=== PATIENT | female | born 1995 | race Caucasian/White ===

== ENCOUNTER 2018-09-19 23:17 | Emergency (ER) | payer MEDICAID ==
[2018-09-19 23:37] VITALS: BP 150/96
--- NOTE | 2018-09-19 23:56 | EDM.PDOC ---
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 She could not feel the iud string tonight and she was concerned because of such recent placement. Onset: Today Duration: Hour(s): Associated Symptoms: Reports: No Other Symptoms, Other (pt has been slightly tender in the lower pelvic area. She is due to have her period in the next 2-3 days,.) pelvic Pain Score (Numeric/FACES): 4 - Related Data Allergies Allergy/AdvReac Type Severity Reaction Status Date / Time Penicillins Allergy Rash Verified 09/19/18 23:28 Home Meds: Home Meds Sertraline [Zoloft] 50 mg PO BEDTIME 05/12/14 [History] Mirena 1 applic VAG Q60M 09/19/18 [History] Past Medical History - Past Health History Medical/Surgical History: Denies Medical/Surgical History Psychiatric History: Reports: Anxiety, Depression - Past Surgical History Musculoskeletal Surgical History: Reports: Other (See Below) Other Musculoskeletal Surgeries/Procedures:: right ankle surgery- 19 years old Social & Family History - Tobacco Use Smoking Status *Q: Never Smoker - Caffeine Use Caffeine Use: Reports: Coffee, Soda - Recreational Drug Use Recreational Drug Use: No ED ROS GENERAL - Review of Systems Review Of Systems: See Below Constitutional: Reports: No Symptoms HEENT: Reports: No Symptoms Respiratory: Reports: No Symptoms Cardiovascular: Reports: No Symptoms Endocrine: Reports: No Symptoms GI/Abdominal: Reports: No Symptoms : Reports: Other (pt was not able to feel the IUD string and was wondering if placement was lost. ) Musculoskeletal: Reports: No Symptoms Skin: Reports: No Symptoms Neurological: Reports: No Symptoms ED EXAM, GI/ABD - Physical Exam Exam: See Below Text/Narrative:: pt arrived with a concern that her IUD lost placement. She was not able to find the string. Exam Limited By: No Limitations General Appearance: Alert, Mild Distress (Female) Exam: Other (exam with a speculum at first did not reveal the string. Josh exam found it behind the cervix and then it could be visualized. ) Rectal (Female) Exam: Deferred Back Exam: Normal Inspection Extremities: Normal Inspection Neurological: Alert, Oriented, Normal Cognition Course - Vital Signs Last Recorded V/S: Last Vital Signs Temp 36.4 C 09/19/18 23:34 Pulse 83 09/19/18 23:34 Resp 15 09/19/18 23:34 BP 150/96 H 09/19/18 23:34 Pulse Ox 99 09/19/18 23:34 Departure - Departure Time of Disposition: 23:54 Disposition: Home, Self-Care 01 Condition: Fair Clinical Impression: IUD check up, Premenstrual symptom - Discharge Information Referrals: PCP,None [Primary Care Provider] - Forms: ED Department Discharge Care Plan Goals: rtc if increased pain. continue to check for iud string.
== END 2018-09-20 00:05 | disposition home or self-care (01) ==
LOC: JP.ED 23:17
DX: Z30.431 Encounter for routine checking of intrauterine contraceptive device (principal); N94.89 Other specified conditions associated with female genital organs and menstrual cycle; F41.9 Anxiety disorder, unspecified; F32.9 Major depressive disorder, single episode, unspecified; Z79.899 Other long term (current) drug therapy
CPT/HCPCS: 99283

== ENCOUNTER 2018-10-16 22:14 | Emergency (ER) | payer MEDICAID ==
[2018-10-16 23:06] VITALS: BP 137/92
--- NOTE | 2018-10-17 00:49 | EDM.PDOC ---
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 She has been bleeding alomost continuously since that time. She has had very sharp pain . Onset: Gradual Duration: Day(s): Location: Reports: Abdomen Associated Symptoms: Reports: No Other Symptoms Uterine Pain Score (Numeric/FACES): 2 - Related Data Allergies Allergy/AdvReac Type Severity Reaction Status Date / Time Penicillins Allergy Rash Verified 10/16/18 23:07 Home Meds: Home Meds Sertraline [Zoloft] 50 mg PO BEDTIME 05/12/14 [History] Mirena 1 applic VAG Q60M 09/19/18 [History] Past Medical History - Past Health History Medical/Surgical History: Denies Medical/Surgical History HEENT History: Reports: Impaired Vision Musculoskeletal History: Reports: None Psychiatric History: Reports: Anxiety, Depression Endocrine/Metabolic History: Reports: Obesity/BMI 30+ - Past Surgical History Head Surgeries/Procedures: Reports: None HEENT Surgical History: Reports: None Endocrine Surgical History: Reports: None Musculoskeletal Surgical History: Reports: Other (See Below) Other Musculoskeletal Surgeries/Procedures:: right ankle surgery- 19 years old Dermatological Surgical History: Reports: None Social & Family History - Tobacco Use Smoking Status *Q: Never Smoker Second Hand Smoke Exposure: No - Caffeine Use Caffeine Use: Reports: Coffee, Soda - Recreational Drug Use Recreational Drug Use: No ED ROS GENERAL - Review of Systems Review Of Systems: See Below Constitutional: Reports: No Symptoms HEENT: Reports: No Symptoms Respiratory: Reports: No Symptoms Cardiovascular: Reports: No Symptoms Endocrine: Reports: No Symptoms GI/Abdominal: Reports: No Symptoms, Other (pt is having continuous spotting and pain since the IUD was inserted. ) : Reports: No Symptoms Musculoskeletal: Reports: No Symptoms ED EXAM, RENAL/ - Physical Exam Exam: See Below Text/Narrative:: pt arrived with pain since she had the IUD inserted. Exam Limited By: No Limitations General Appearance: Alert, Mild Distress Ears: Normal TMs Nose: Normal Inspection Throat/Mouth: Normal Inspection Head: Atraumatic Neck: Normal Inspection Respiratory/Chest: No Respiratory Distress Cardiovascular: Regular Rate, Rhythm (Female) Exam: Other ( pelvic exam revealed the Iud may be setting lower than it should be. Pt wanted the IUD without question. The white portion of the IUD could be visyualized in the cervical os. When quetioned again she defintely wanted the IUD out. ) Rectal (Female) Exam: Deferred Back Exam: Normal Inspection Extremities: Normal Inspection Neurological: Alert, Oriented, Normal Cognition Course - Vital Signs Last Recorded V/S: Last Vital Signs Temp 35.7 C 10/16/18 23:08 Pulse 74 10/16/18 23:08 Resp 16 10/16/18 23:08 BP 137/92 H 10/16/18 23:08 Pulse Ox 98 10/16/18 23:08 - Re-Assessments/Exams Free Text/Narrative Re-Assessment/Exam: 10/17/18 00:56 The Iud appeared to low and the pt whidhed to have it removed. The string was grasped by the ring nose and it was removed without difficulty. Pt did not have sig bleeding. Departure - Departure Time of Disposition: 00:49 Disposition: Home, Self-Care 01 Condition: Fair Clinical Impression: IUD complication - Discharge Information Instructions: Intrauterine Device Information Referrals: PCP,None [Primary Care Provider] - Forms: ED Department Discharge Care Plan Goals: expect persist spotting for the next 10 days. If ongoing pain please follow up with provider.
== END 2018-10-17 00:58 | disposition home or self-care (01) ==
LOC: JP.ED 22:14
DX: T83.89XA Other specified complication of genitourinary prosthetic devices, implants and grafts, initial encounter (principal); Z30.432 Encounter for removal of intrauterine contraceptive device; Z88.0 Allergy status to penicillin
CPT/HCPCS: 99283

== ENCOUNTER 2021-02-12 11:00 | Emergency (ER) | payer MEDICAID ==
[2021-02-12 11:31] VITALS: BP 154/94; PULSE 91
--- NOTE | 2021-02-12 11:57 | EDM.PDOC ---
ED HPI GENERAL MEDICAL PROBLEM - General Chief Complaint: Respiratory Problem Stated Complaint: SHARP PAIN/RT SIDE Time Seen by Provider: 02/12/21 11:57 Source of Information: Reports: Patient, RN Notes Reviewed History Limitations: Reports: No Limitations - History of Present Illness INITIAL COMMENTS - FREE TEXT/NARRATIVE: Delfina presents today for complaint of right lateral chest/rib pain for the past 24 hours that is sharp and burning. She denies any recent injury, trauma, fever, chills, nausea, vomiting, cough or other concerns. - Related Data Allergies Allergy/AdvReac Type Severity Reaction Status Date / Time Penicillins Allergy Rash Verified 02/12/21 11:32 Home Meds: Home Meds Sertraline [Zoloft] 100 mg PO BEDTIME 05/12/14 [History] Past Medical History - Past Health History Medical/Surgical History: Denies Medical/Surgical History HEENT History: Reports: Impaired Vision Musculoskeletal History: Reports: None Psychiatric History: Reports: Anxiety, Depression Endocrine/Metabolic History: Reports: Obesity/BMI 30+ - Past Surgical History Head Surgeries/Procedures: Reports: None HEENT Surgical History: Reports: None Endocrine Surgical History: Reports: None Musculoskeletal Surgical History: Reports: Other (See Below) Other Musculoskeletal Surgeries/Procedures:: right ankle surgery- 19 years old Dermatological Surgical History: Reports: None Social & Family History - Tobacco Use Tobacco Use Status *Q: Never Tobacco User - Caffeine Use Caffeine Use: Reports: Coffee, Soda - Recreational Drug Use Recreational Drug Use: No ED ROS GENERAL - Review of Systems Review Of Systems: See Below Constitutional: Reports: No Symptoms HEENT: Reports: No Symptoms Respiratory: Reports: Other (pain to right lateral chest off and on. ). Denies: Shortness of Breath, Wheezing, Cough, Sputum, Hemoptysis Cardiovascular: Reports: Chest Pain (pain to right lateral chest ). Denies: Blood Pressure Problem, Claudication, Dyspnea on Exertion, Edema, Lightheadedness, Orthopnea, Palpitations, PND, Syncope Endocrine: Reports: No Symptoms GI/Abdominal: Reports: No Symptoms : Reports: No Symptoms Musculoskeletal: Reports: No Symptoms Skin: Reports: No Symptoms Neurological: Reports: No Symptoms Psychiatric: Reports: No Symptoms Hematologic/Lymphatic: Reports: No Symptoms Immunologic: Reports: No Symptoms ED EXAM, GENERAL - Physical Exam Exam: See Below Exam Limited By: No Limitations General Appearance: Alert, WD/WN, No Apparent Distress Eye Exam: Bilateral Eye: Normal Inspection, PERRL Ears: Normal External Exam, Normal Canal, Hearing Grossly Normal, Normal TMs Nose: Normal Inspection, Normal Mucosa, No Blood Throat/Mouth: Normal Inspection, Normal Lips, Normal Teeth, Normal Gums, Normal Oropharynx, Normal Voice, No Airway Compromise Head: Atraumatic, Normocephalic Neck: Normal Inspection, Supple, Non-Tender, Full Range of Motion. No: Lymphadenopathy (R), Lymphadenopathy (L) Respiratory/Chest: No Respiratory Distress, Lungs Clear, Normal Breath Sounds, No Accessory Muscle Use, Chest Non-Tender, Other (tenderness with palpation and percussio to left lateral chest). No: Decreased Breath Sounds, Crackles, Rales, Rhonchi, Wheezing, Stridor Cardiovascular: Normal Peripheral Pulses, Regular Rate, Rhythm, No Edema, No Gallop, No Murmur, No Rub Peripheral Pulses: 4+: Radial (L), Radial (R) GI/Abdominal: Normal Bowel Sounds, Soft, Non-Tender, No Organomegaly, No Distention, No Abnormal Bruit, No Mass. No: Guarding, Rigid, Rebound, Tender Back Exam: Normal Inspection, Full Range of Motion. No: CVA Tenderness (R), CVA Tenderness (L) Extremities: Normal Inspection, Normal Range of Motion, Non-Tender, No Pedal Edema, Normal Capillary Refill Neurological: Alert, Oriented, CN II-XII Intact, Normal Cognition, Normal Gait, Normal Reflexes, No Motor/Sensory Deficits Psychiatric: Normal Affect, Normal Mood Skin Exam: Warm, Dry, Intact, Normal Color, No Rash, Other (she did receive chicken pox vaccination as a child. ). No: Wound/Incision, Zoster-Like Rash Lymphatic: No Adenopathy Course - Vital Signs Last Recorded V/S: Last Vital Signs Temp 36.1 C 02/12/21 11:38 Pulse 91 02/12/21 11:38 Resp 18 02/12/21 11:38 BP 154/94 H 02/12/21 11:38 Pulse Ox 97 02/12/21 11:38 - Orders/Labs/Meds Labs: Laboratory Tests 02/12/21 02/12/21 Range/Units 11:16 12:19 WBC 8.0 (4.5-11.0) K/uL RBC 4.75 (3.30-5.50) M/uL Hgb 14.2 (12.0-15.0) g/dL Hct 42.5 (36.0-48.0) % MCV 90 (80-98) fL MCH 30 (27-31) pg MCHC 33 (32-36) % Plt Count 347 (150-400) K/uL Neut % (Auto) 71.3 H (36-66) % Lymph % (Auto) 17.8 L (24-44) % [place] % (Auto) 7.4 H (2-6) % Eos % (Auto) 2.6 (2-4) % Baso % (Auto) 0.9 (0-1) % Urine Color Yellow (YELLOW) Urine Appearance Slightly cloudy A (CLEAR) Urine pH 6.5 (5.0-8.0) Ur Specific [place] 1.025 (1.008-1.030) Urine Protein Negative (NEGATIVE) mg/dL Urine Glucose (UA) Negative (NEGATIVE) mg/dL Urine Ketones Negative (NEGATIVE) mg/dL Urine Occult Blood Large H (NEGATIVE) Urine Nitrite Negative (NEGATIVE) Urine Bilirubin Negative (NEGATIVE) Urine Urobilinogen 0.2 (0.2-1.0) EU/dL Ur Leukocyte Esterase Negative (NEGATIVE) Urine RBC 50-75 H (0-5) Urine WBC 0-5 (0-5) Ur Epithelial Cells Few Amorphous Sediment Not seen Urine Bacteria Few Urine Mucus Many No acute findings noted. Menstrual cycle present. - Radiology Interpretation Free Text/Narrative:: Chest x-ray shows no acute findings. x-ray and lab work discussed with patient, no acute findings noted. She is most likely suffering from costochondritis. She can take ibuprofen as directed. Follow up with primary for recheck and as needed. She is in agreement with plan. Departure - Departure Time of Disposition: 13:22 Disposition: Home, Self-Care 01 Condition: Good Clinical Impression: Costochondritis - Discharge Information *PRESCRIPTION DRUG MONITORING PROGRAM REVIEWED*: Not Applicable *COPY OF PRESCRIPTION DRUG MONITORING REPORT IN PATIENT EVAN: Not Applicable Instructions: Costochondritis, [id number] Referrals: PCP,None [Primary Care Provider] - Forms: ED Department Discharge Additional Instructions: You have been evaluated and treated for right lateral chest/rib pain. Chest x-ray shows no acute findings. Lab work shows no sign of bacterial infection at this time. You are most likely suffering from chostochondritis. Take ibuprofen 800mg by mouth three times a day for pain with food. Sepsis Event Note (ED) - Evaluation Sepsis Screening Result: No Definite Risk - Focused Exam Vital Signs: Vital Signs Temp Pulse Resp BP Pulse Ox 02/12/21 11:38 36.1 C 91 18 154/94 H 97 02/12/21 11:30 36.1 C 91 18 154/94 H 97 - Assessment/Plan Assessment:: Costochondritis Plan: Patient evaluated and treated for right lateral chest/rib pain. Chest x-ray shows no acute findings. Lab work shows no sign of bacterial infection at this time. She is most likely suffering from chostochondritis. Take ibuprofen 800mg by mouth three times a day for pain with food.
--- NOTE | 2021-02-12 12:58 | CRLCR ---
For Patients: As a result of the Cures Act, medical imaging exams and procedure reports are released immediately into your electronic medical record. You may view this report before your referring provider. If you have questions, please contact your health care provider. INDICATION: Chest pain. COMPARISON: None. TECHNIQUE: PA and lateral views of the chest. FINDINGS: The lungs are hypoinflated. No focal consolidation, pneumothorax or effusion. Cardiomediastinal silhouette is within normal limits. There are no acute osseous findings. IMPRESSION: Hypoventilatory changes. No acute airspace disease. Dictated by Mark Galicia MD @ 02/12/2021 12:57:46 PM Dictated by: Mark Galicia MD @ 02/12/2021 12:57:53 (Electronically Signed)
== END 2021-02-12 13:38 | disposition home or self-care (01) ==
LOC: JP.ED 11:00
DX: M94.0 Chondrocostal junction syndrome [Tietze] (principal); E66.9 Obesity, unspecified; Z68.41 Body mass index [BMI] 40.0-44.9, adult; Z88.0 Allergy status to penicillin
CPT/HCPCS: 36415; 71046; 81001; 85025; 99283-25

== ENCOUNTER 2021-03-11 09:29 | Emergency (ER) | payer MEDICAID ==
[2021-03-11] MEDS ORDERED: Ondansetron 4 MG Tab.DIS PO ONE (09:31)
[2021-03-11 10:41] VITALS: BP 165/109; PULSE 84
--- NOTE | 2021-03-11 10:55 | EDM.PDOC ---
ED HPI GENERAL MEDICAL PROBLEM - General Chief Complaint: Gastrointestinal Problem Stated Complaint: VOMITING FOR PAST 12 HOURS Time Seen by Provider: 03/11/21 10:45 Source of Information: Reports: Patient, Old Records, RN History Limitations: Reports: No Limitations - History of Present Illness INITIAL COMMENTS - FREE TEXT/NARRATIVE: 26 yo female presents with nausea and vomiting and a little diarrhea tkat began about 8 pm last night. No blood in her emesis, abdominal pain, or fever. Was seen in the clinic yesterday for cold sx's and had a negative Covid test. Onset: Gradual Onset Date: 03/10/21 Duration: Hour(s): (12+), Constant Location: Reports: Abdomen Quality: Reports: Other (no pain) Severity: Moderate Improves with: Reports: None Worsens with: Reports: None Context: Reports: Other (See HPI) Associated Symptoms: Reports: Nausea/Vomiting. 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) - Related Data Allergies Allergy/AdvReac Type Severity Reaction Status Date / Time Penicillins Allergy Rash Verified 03/11/21 10:38 Home Meds: Home Meds Sertraline [Zoloft] 100 mg PO BEDTIME 05/12/14 [History] Azithromycin 250 mg PO DAILY 03/11/21 [History] Past Medical History - Past Health History Medical/Surgical History: Denies Medical/Surgical History HEENT History: Reports: Impaired Vision Musculoskeletal History: Reports: None Psychiatric History: Reports: Anxiety, Depression Endocrine/Metabolic History: Reports: Obesity/BMI 30+ - Past Surgical History Head Surgeries/Procedures: Reports: None HEENT Surgical History: Reports: None Endocrine Surgical History: Reports: None Musculoskeletal Surgical History: Reports: Other (See Below) Other Musculoskeletal Surgeries/Procedures:: right ankle surgery- 19 years old Dermatological Surgical History: Reports: None Social & Family History - Tobacco Use Tobacco Use Status *Q: Never Tobacco User Second Hand Smoke Exposure: No - Caffeine Use Caffeine Use: Reports: Coffee, Soda - Recreational Drug Use Recreational Drug Use: No ED ROS GENERAL - Review of Systems Review Of Systems: See Below Constitutional: Reports: No Symptoms HEENT: Reports: No Symptoms Respiratory: Reports: No Symptoms Cardiovascular: Reports: No Symptoms GI/Abdominal: Reports: Bloody Stool, Diarrhea (mild), Nausea, Vomiting. Denies: Abdominal Pain, Constipation, Hematemesis, Hematochezia, Melena : Reports: No Symptoms Musculoskeletal: Reports: No Symptoms Skin: Reports: No Symptoms Neurological: Reports: No Symptoms ED EXAM, GI/ABD - Physical Exam Exam: See Below Exam Limited By: No Limitations General Appearance: Alert, WD/WN, No Apparent Distress, Obese Eyes: Bilateral: Normal Appearance Ears: Normal External Exam, Normal Canal, Hearing Grossly Normal Nose: Normal Inspection, No Blood Throat/Mouth: Normal Inspection, Normal Lips, Normal Oropharynx, Normal Voice, No Airway Compromise Head: Atraumatic, Normocephalic Neck: Normal Inspection Respiratory/Chest: No Respiratory Distress, Lungs Clear, Normal Breath Sounds, No Accessory Muscle Use Cardiovascular: Regular Rate, Rhythm, No Edema GI/Abdominal Exam: Soft, Non-Tender Extremities: Normal Inspection Neurological: Alert, Oriented, CN II-XII Intact, Normal Cognition, No Motor/Sensory Deficits Psychiatric: Normal Affect, Normal Mood Skin Exam: Warm, Dry, Intact, Normal Color, No Rash Course - Vital Signs Last Recorded V/S: Last Vital Signs Temp 36.6 C 03/11/21 10:44 Pulse 84 03/11/21 10:44 Resp 16 03/11/21 10:44 BP 165/109 H 03/11/21 10:44 Pulse Ox 95 03/11/21 10:44 - Orders/Labs/Meds Meds: Medications Discontinued Medications Generic Name Dose Route Start Last Admin Trade Name Ayaz PRN Reason Stop Dose Admin Ondansetron HCl 4 mg 03/11/21 09:31 03/11/21 10:48 Ondansetron 4 Mg Tab.Dis PO 03/11/21 09:32 4 mg ONETIME ONE Administration - Re-Assessments/Exams Free Text/Narrative Re-Assessment/Exam: 03/11/21 12:07 Went to check on patient and she had left. I called and left a voice message for her regarding calling in an Rx for Zofran for her. Departure - Departure Time of Disposition: 12:08 Disposition: Eloped 07 Condition: Fair Clinical Impression: Nausea and vomiting Qualifiers: Vomiting type: unspecified Vomiting Intractability: non-intractable Qualified Code(s): R11.2 - Nausea with vomiting, unspecified - Discharge Information *PRESCRIPTION DRUG MONITORING PROGRAM REVIEWED*: Not Applicable *COPY OF PRESCRIPTION DRUG MONITORING REPORT IN PATIENT EVAN: Not Applicable Referrals: PCP,None [Primary Care Provider] - Forms: ED Department Discharge Sepsis Event Note (ED) - Focused Exam Vital Signs: Vital Signs Temp Pulse Resp BP Pulse Ox 03/11/21 10:44 36.6 C 84 16 165/109 H 95 03/11/21 10:40 36.6 C 84 16 165/109 H 95
== END 2021-03-11 12:21 | disposition left against medical advice (07) ==
LOC: JP.ED 09:29
DX: R11.2 Nausea with vomiting, unspecified (principal); E66.9 Obesity, unspecified; Z68.41 Body mass index [BMI] 40.0-44.9, adult; Z88.0 Allergy status to penicillin
CPT/HCPCS: 99283; A9270

== ENCOUNTER 2021-06-04 14:07 | Emergency (ER) | payer MEDICAID ==
[2021-06-04 14:28] VITALS: BP 143/85; PULSE 84
== END 2021-06-04 16:00 | disposition home or self-care (01) ==
LOC: JP.ED 14:07
DX: R10.2 Pelvic and perineal pain (principal); E66.9 Obesity, unspecified; Z68.41 Body mass index [BMI] 40.0-44.9, adult; Z88.0 Allergy status to penicillin
CPT/HCPCS: 76857; 76857-26; 99284-25

== ENCOUNTER 2022-03-23 02:01 | Emergency (ER) | payer MEDICAID ==
[2022-03-23 02:30] VITALS: BP 142/103; PULSE 89
== END 2022-03-23 02:50 | disposition home or self-care (01) ==
LOC: JP.ED 02:01
DX: J06.9 Acute upper respiratory infection, unspecified (principal); H66.93 Otitis media, unspecified, bilateral; H69.83 Other specified disorders of Eustachian tube, bilateral; Z88.0 Allergy status to penicillin; Z79.899 Other long term (current) drug therapy
CPT/HCPCS: 99282

== ENCOUNTER 2024-01-15 15:30 | Emergency (ER) | payer MEDICAID ==
[2024-01-15 15:52] VITALS: BP 146/92; PULSE 102
[2024-01-15 16:24] LABS: APPEARANCE,URINE SLIGHTLY CLOUDY (CLEAR); BILIRUBIN,URINE NEGATIVE (NEGATIVE); COLOR,URINE YELLOW (YELLOW); GLUCOSE,URINE NEGATIVE (NEGATIVE); KETONES,URINE NEGATIVE (NEGATIVE); LEUKOCYTE ESTERASE,URINE NEGATIVE (NEGATIVE); NITRITE,URINE NEGATIVE (NEGATIVE); OCCULT BLOOD,URINE NEGATIVE (NEGATIVE); PROTEIN,URINE NEGATIVE (NEGATIVE); UROBILINOGEN,URINE 0.2 EU/dL (0.2-1.0)
[2024-01-15 16:27] LABS: CREATININE,URINE RAND 192.2 mg/dL (20.0-370.0); PROTEIN,URINE RANDOM 13.9 mg/dL (6.0-11.9)
[2024-01-15 16:29] LABS: BASOPHILS ABSOLUTE AUTO 0.03 K/uL (0.00-0.10); BASOPHILS PERCENT AUTO 0.2 % (0.1-1.3); EOSINOPHILS ABSOLUTE AUTO 0.11 K/uL (0.00-0.40); EOSINOPHILS PERCENT AUTO 0.8 % (0.0-5.4); HEMATOCRIT 33.3 % (34.3-46.0); HEMOGLOBIN 11.6 g/dL (11.2-15.5); IMMATURE GRAN ABSOLUTE AUTO 0.08 K/uL (0.00-0.23); IMMATURE GRAN PERCENT AUTO 0.6 % (0.0-0.7); LYMPHOCYTES ABSOLUTE AUTO 2.33 K/uL (0.8-3.3); LYMPHOCYTES PERCENT AUTO 17.9 % (11.4-47.7); MEAN CORPUSCULAR HEMOGLOBIN 30.1 pg (31.6-35.5); MEAN CORPUSCULAR HGB CONC 34.8 g/dL (31.6-35.5); MEAN CORPUSCULAR VOLUME 86.3 fL (81.4-99.0); MONOCYTES ABSOLUTE AUTO 0.84 K/uL (0.20-0.90); MONOCYTES PERCENT AUTO 6.5 % (3.3-12.6); NEUTROPHILS ABSOLUTE AUTO 9.63 K/uL (1.0-7.6); PLATELET COUNT,PLT 263 K/uL (130-375); RED BLOOD CELL COUNT 3.86 M/uL (3.77-5.24)
[2024-01-15 16:31] LABS: PROTEIN CREATININE RATIO,URINE 72.3 mg/g (21.0-161.0)
[2024-01-15 16:34] LABS: AMORPHOUS SEDIMENT,URINE FEW; BACTERIA,URINE MODERATE; EPITHELIAL CELLS,URINE MODERATE; MUCUS,URINE FEW; RBC,URINE 0-5 (0-5); WBC,URINE 0-5 (0-5)
[2024-01-15 16:55] LABS: A/G RATIO 0.7 (1.2-2.2); ALANINE AMINOTRANSFERASE,ALT 23 U/L (12-78); ALBUMIN 2.8 g/dL (3.4-5.0); ALKALINE PHOSPHATASE 106 U/L (46-116); ANION GAP 13.7 mmol/L (5.0-14.0); ASPARTATE AMNIOTRANSFERASE,AST 18 U/L (15-37); BILIRUBIN TOTAL 0.3 mg/dL (0.2-1.0); BLOOD UREA NITROGEN,BUN 8 mg/dL (7-18); CALCIUM 9.3 mg/dL (8.5-10.1); CARBON DIOXIDE,CO2 23 mmol/L (21-32); CHLORIDE,CL 101 mmol/L (100-108); CREATININE 0.8 mg/dL (0.6-1.0); ESTIMATED GFR 102 mL/min (>60); GLUCOSE RANDOM 91 mg/dL (74-106); POTASSIUM,K 3.7 mmol/L (3.6-5.2); PROTEIN TOTAL,TP 7.1 g/dL (6.4-8.2); SODIUM,NA 134 mmol/L (140-148)
== END 2024-01-15 17:25 | disposition home or self-care (01) ==
LOC: JP.ED 15:30
DX: O99.513 Diseases of the respiratory system complicating pregnancy, third trimester (principal); R06.02 Shortness of breath; O13.9 Gestational [pregnancy-induced] hypertension without significant proteinuria, unspecified trimester; Z88.0 Allergy status to penicillin; Z3A.29 29 weeks gestation of pregnancy; Z79.899 Other long term (current) drug therapy
CPT/HCPCS: 36415; 80053; 81001; 82570; 84156; 84484; 85025; 93005; 93010; 99284; 99285

== ENCOUNTER 2024-03-12 20:33 | Emergency (ER) | payer MEDICAID ==
[2024-03-12 21:10] VITALS: BP 152/84; PULSE 101
== END 2024-03-12 21:15 | disposition home or self-care (01) ==
LOC: JP.ED 20:33
DX: Z48.815 Encounter for surgical aftercare following surgery on the digestive system (principal); I10 Essential (primary) hypertension; E66.9 Obesity, unspecified; Z88.0 Allergy status to penicillin; Z79.899 Other long term (current) drug therapy; Z68.41 Body mass index [BMI] 40.0-44.9, adult
CPT/HCPCS: 99282

== ENCOUNTER 2024-10-16 14:11 | Emergency (ER) | payer MEDICAID ==
[2024-10-16 14:29] LABS: APPEARANCE,URINE CLEAR (CLEAR); BILIRUBIN,URINE NEGATIVE (NEGATIVE); COLOR,URINE YELLOW (YELLOW); GLUCOSE,URINE NEGATIVE (NEGATIVE); KETONES,URINE NEGATIVE (NEGATIVE); LEUKOCYTE ESTERASE,URINE NEGATIVE (NEGATIVE); NITRITE,URINE NEGATIVE (NEGATIVE); OCCULT BLOOD,URINE TRACE-INTACT (NEGATIVE); PROTEIN,URINE NEGATIVE (NEGATIVE); UROBILINOGEN,URINE 0.2 EU/dL (0.2-1.0)
[2024-10-16 14:36] LABS: AMORPHOUS SEDIMENT,URINE NOT SEEN; BACTERIA,URINE FEW; EPITHELIAL CELLS,URINE FEW; MUCUS,URINE RARE; RBC,URINE 0-5 (0-5); WBC,URINE 0-5 (0-5)
[2024-10-16 14:41] VITALS: BP 128/78; PULSE 85
[2024-10-16 14:47] LABS: BASOPHILS ABSOLUTE AUTO 0.07 K/uL (0.00-0.10); BASOPHILS PERCENT AUTO 0.6 % (0.1-1.3); EOSINOPHILS ABSOLUTE AUTO 0.27 K/uL (0.00-0.40); EOSINOPHILS PERCENT AUTO 2.5 % (0.0-5.4); HEMATOCRIT 37.2 % (34.3-46.0); HEMOGLOBIN 12.4 g/dL (11.2-15.5); IMMATURE GRAN ABSOLUTE AUTO 0.03 K/uL (0.00-0.23); IMMATURE GRAN PERCENT AUTO 0.3 % (0.0-0.7); LYMPHOCYTES ABSOLUTE AUTO 2.97 K/uL (0.8-3.3); LYMPHOCYTES PERCENT AUTO 27.1 % (11.4-47.7); MEAN CORPUSCULAR HEMOGLOBIN 28.1 pg (31.6-35.5); MEAN CORPUSCULAR HGB CONC 33.3 g/dL (31.6-35.5); MEAN CORPUSCULAR VOLUME 84.2 fL (81.4-99.0); MONOCYTES ABSOLUTE AUTO 0.69 K/uL (0.20-0.90); MONOCYTES PERCENT AUTO 6.3 % (3.3-12.6); NEUTROPHILS ABSOLUTE AUTO 6.92 K/uL (1.0-7.6); NEUTROPHILS PERCENT AUTO 63.2 % (40.0-78.1); PLATELET COUNT,PLT 291 K/uL (130-375); RED BLOOD CELL COUNT 4.42 M/uL (3.77-5.24)
[2024-10-16 15:12] LABS: A/G RATIO 0.7 (1.2-2.2); ALANINE AMINOTRANSFERASE,ALT 27 U/L (12-78); ALBUMIN 3.2 g/dL (3.4-5.0); ALKALINE PHOSPHATASE 83 U/L (46-116); ASPARTATE AMNIOTRANSFERASE,AST 15 U/L (15-37); BILIRUBIN TOTAL 0.2 mg/dL (0.2-1.0); BLOOD UREA NITROGEN,BUN 14 mg/dL (7-18); CALCIUM 9.5 mg/dL (8.5-10.1); CARBON DIOXIDE,CO2 26 mmol/L (21-32); CHLORIDE,CL 103 mmol/L (100-108); CREATININE 0.9 mg/dL (0.6-1.0); EST CRCL DRUG DOSING (CG) 75.61 mL/min; ESTIMATED GFR 88 mL/min (>60); GLUCOSE RANDOM 98 mg/dL (74-106); POTASSIUM,K 3.3 mmol/L (3.6-5.2); PROTEIN TOTAL,TP 7.5 g/dL (6.4-8.2); SODIUM,NA 137 mmol/L (140-148)
[2024-10-16 15:13] LABS: ANION GAP 11.3 mmol/L (5.0-14.0)
== END 2024-10-16 15:37 | disposition home or self-care (01) ==
LOC: JP.ED 14:11
DX: E87.6 Hypokalemia (principal); I10 Essential (primary) hypertension; Z88.0 Allergy status to penicillin; Z79.899 Other long term (current) drug therapy
CPT/HCPCS: 36415; 80053; 81001; 81025; 85025; 99284

== ENCOUNTER 2025-04-18 15:09 | Emergency (ER) | payer MEDICAID ==
[2025-04-18 15:30] VITALS: BP 127/70; PULSE 74
== END 2025-04-18 17:39 | disposition home or self-care (01) ==
LOC: JP.ED 15:09
DX: I80.8 Phlebitis and thrombophlebitis of other sites (principal); I10 Essential (primary) hypertension; E66.9 Obesity, unspecified; Z88.0 Allergy status to penicillin; Z79.899 Other long term (current) drug therapy; Z90.710 Acquired absence of both cervix and uterus; Z68.41 Body mass index [BMI] 40.0-44.9, adult
CPT/HCPCS: 93971-RT; 99283